=== PATIENT | male | born 1995 | race Caucasian/White ===

== ENCOUNTER 2017-08-06 04:10 | Emergency (ER) | payer BC, OTHER ==
[~2017-08-06] VITALS: Ht 172.7 cm; Wt 85.0 kg
[~2017-08-06 04:10] MED LIST: ALPR.25 PO
[2017-08-06] MEDS ORDERED: LORazepam 2 MG/ML VIAL IM ONE (04:30)
[2017-08-06] MEDS ORDERED: HALOPERIDOL LACTATE 5 MG/ML AMP IM ONE (04:30)
[2017-08-06 04:40] VITALS: BP 132/71; PULSE 99; RESP 18; TEMP 98.6; O2SAT 98
[2017-08-06 06:22] LABS: AUTOMATED NEUTROPHIL # 7.5 TH/MM3 (1.8-7.7); BASOPHIL % 0.4 % (0.0-2.0); EOSINOPHIL # 0.2 TH/MM3 (0-0.4); EOSINOPHIL % 1.8 % (0.0-4.0); HEMOGLOBIN 15.4 GM/DL (13.0-17.0); LYMPH % 18.9 % (9.0-44.0); MEAN CELL VOLUME 91.9 FL (80.0-100.0); MEAN CORPUSCULAR HEMOGLOBIN 31.5 PG (27.0-34.0); MEAN CORPUSCULAR HGB CONC 34.3 % (32.0-36.0); MEAN PLATELET VOLUME 7.8 FL (7.0-11.0); MONO % 7.2 % (0.0-8.0); MONOCYTE # 0.8 TH/MM3 (0-0.9); NEUT % 71.7 % (16.0-70.0); PLATELET COUNT 301 TH/MM3 (150-450); RED BLOOD COUNT 4.89 MIL/MM3 (4.50-5.90); RED CELL DISTRIBUTION WIDTH 13.2 % (11.6-17.2); WHITE BLOOD COUNT 10.5 TH/MM3 (4.0-11.0)
[2017-08-06] MEDS ORDERED: LORA1TAB12 PO (06:51)
[2017-08-06] MEDS ORDERED: AMPH1TAB29 PO (06:51)
[2017-08-06 06:53] LABS: ALKALINE PHOSPHATASE 118 U/L (45-117); ALT (GPT) 35 U/L (9-52); AST (GOT) 15 U/L (15-39); BICARBONATE 26.1 MEQ/L (21.0-32.0); BLOOD UREA NITROGEN 9 MG/DL (7-18); CALCIUM 8.2 MG/DL (8.5-10.1); CHLORIDE 107 MEQ/L (98-107); CREATININE 0.97 MG/DL (0.60-1.30); GLOMERULAR FILTRATION RATE 99 ML/MIN (>89); GLUCOSE,RANDOM 88 MG/DL (74-106); SODIUM (NA) 141 MEQ/L (136-145); TOTAL BILIRUBIN ADULT 0.2 MG/DL (0.2-1.0); TOTAL PROTEIN 7.8 GM/DL (6.4-8.2)
[2017-08-06 06:58] LABS: ACETAMINOPHEN LESS THAN 2.0 MCG/ML (10.0-30.0)
--- NOTE | 2017-08-06 07:14 | PD ---
HPI Chief Complaint: Psychiatric Symptoms Time Seen by Provider: 04:15 Travel History International Travel<30 days: No Contact w/Intl Traveler<30days: No Traveled to known affect area: No History of Present Illness HPI 22-year-old white male presents to emergency department under Ortiz act by PD. He said responded to home and found intoxicated individual arguing with his parents. According to the patient they Ortiz acted him because he was intoxicated and had a history of anxiety. Patient denies any suicidal or homicidal ideation. Ortiz act indicates the patient and made suicidal statements. Patient denies any toxic ingestions. Patient denies any recent illnesses or injuries. Patient denies any drugs. 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 Space doses at least 4 to 6 hours if more than once/day dosing. Lorazepam 1 Mg Tab Unknown Dose PO DAILY PRN Review of Systems General / Constitutional: No: Fever Eyes: No: Visual changes HENT: No: Headaches Cardiovascular: No: Chest Pain or Discomfort Respiratory: No: Shortness of Breath Gastrointestinal: No: Abdominal Pain Genitourinary: No: Dysuria Musculoskeletal: No: Pain Skin: No Rash Neurologic: No: Weakness Psychiatric: Positive: Anxiety, Mood Disorder, Substance Abuse, No: Depression , Suicidal Ideations, Disorder of Thought, Homicidal Ideation Endocrine: No: Polydipsia Hematologic/Lymphatic: No: Easy Bruising Physical Exam Narrative GENERAL: Well-nourished, well-developed patient. Patient is ataxic smells of EtOH. He appears intoxicated. Patient is uncooperative and is a barrier to his care. SKIN: Warm and dry. HEAD: Normocephalic and atraumatic. EYES: No scleral icterus. No injection or drainage. ENT: No nasal drainage noted. Mucous membranes pink. Airway patent. NECK: Supple, trachea midline. Moves head freely without obvious discomfort. CARDIOVASCULAR: Regular rate and rhythm without murmurs, gallops, or rubs. RESPIRATORY: Breath sounds equal bilaterally. No accessory muscle use. GASTROINTESTINAL: Abdomen soft, non-tender, nondistended. EXTREMITIES: No cyanosis or edema. BACK: Nontender without obvious deformity. No CVA tenderness. NEURO: Patient is alert and oriented. no sensorimotor deficits. Nonfocal. Slurred speech. PSYCH: No delusions. No auditory or visual hallucinations. Data Data Last Documented VS Vital Signs Date Time Temp Pulse Resp B/P (MAP) Pulse Ox O2 Delivery O2 Flow Rate FiO2 08/06/17 04:40 98.6 99 18 132/71 (91) 98 Orders Orders Complete Blood Count With Diff (08/06/17 04:16) Comprehensive Metabolic Panel (08/06/17 04:16) Psych Screen (08/06/17 04:16) Restraints Non-Violent SANG.Q3H (08/06/17 04:16) Drug Screen, Random Urine (08/06/17 04:16) Alcohol (Ethanol) (08/06/17 04:16) Salicylates (Aspirin) (08/06/17 04:16) Tylenol (Acetaminophen) (08/06/17 04:16) Haloperidol Inj (Haldol Inj) (08/06/17 04:30) Lorazepam Inj (Ativan Inj) (08/06/17 04:30) Labs Laboratory Tests Test 08/06/17 04:20 White Blood Count 10.5 TH/MM3 Red Blood Count 4.89 MIL/MM3 Hemoglobin 15.4 GM/DL Hematocrit 45.0 % Mean Corpuscular Volume 91.9 FL Mean Corpuscular Hemoglobin 31.5 PG Mean Corpuscular Hemoglobin Concent 34.3 % Red Cell Distribution Width 13.2 % Platelet Count 301 TH/MM3 Mean Platelet Volume 7.8 FL Neutrophils (%) (Auto) 71.7 % Lymphocytes (%) (Auto) 18.9 % Monocytes (%) (Auto) 7.2 % Eosinophils (%) (Auto) 1.8 % Basophils (%) (Auto) 0.4 % Neutrophils # (Auto) 7.5 TH/MM3 Lymphocytes # (Auto) 2.0 TH/MM3 Monocytes # (Auto) 0.8 TH/MM3 Eosinophils # (Auto) 0.2 TH/MM3 Basophils # (Auto) 0.0 TH/MM3 CBC Comment DIFF FINAL Differential Comment Blood Urea Nitrogen 9 MG/DL Creatinine 0.97 MG/DL Random Glucose 88 MG/DL Total Protein 7.8 GM/DL Albumin 4.0 GM/DL Calcium Level 8.2 MG/DL Alkaline Phosphatase 118 U/L Aspartate Amino Transf (AST/SGOT) 15 U/L Alanine Aminotransferase (ALT/SGPT) 35 U/L Total Bilirubin 0.2 MG/DL Sodium Level 141 MEQ/L Potassium Level 4.0 MEQ/L Chloride Level 107 MEQ/L Carbon Dioxide Level 26.1 MEQ/L Anion Gap 8 MEQ/L Estimat Glomerular Filtration Rate 99 ML/MIN Salicylates Level 4.1 MG/DL Acetaminophen Level LESS THAN 2.0 MCG/ML Ethyl Alcohol Level 238 MG/DL MDM Medical Decision Making Medical Screen Exam Complete: Yes Emergency Medical Condition: Yes Medical Record Reviewed: Yes Interpretation(s) Laboratory Tests Test 08/06/17 04:20 White Blood Count 10.5 TH/MM3 Red Blood Count 4.89 MIL/MM3 Hemoglobin 15.4 GM/DL Hematocrit 45.0 % Mean Corpuscular Volume 91.9 FL Mean Corpuscular Hemoglobin 31.5 PG Mean Corpuscular Hemoglobin Concent 34.3 % Red Cell Distribution Width 13.2 % Platelet Count 301 TH/MM3 Mean Platelet Volume 7.8 FL Neutrophils (%) (Auto) 71.7 % Lymphocytes (%) (Auto) 18.9 % Monocytes (%) (Auto) 7.2 % Eosinophils (%) (Auto) 1.8 % Basophils (%) (Auto) 0.4 % Neutrophils # (Auto) 7.5 TH/MM3 Lymphocytes # (Auto) 2.0 TH/MM3 Monocytes # (Auto) 0.8 TH/MM3 Eosinophils # (Auto) 0.2 TH/MM3 Basophils # (Auto) 0.0 TH/MM3 CBC Comment DIFF FINAL Differential Comment Blood Urea Nitrogen 9 MG/DL Creatinine 0.97 MG/DL Random Glucose 88 MG/DL Total Protein 7.8 GM/DL Albumin 4.0 GM/DL Calcium Level 8.2 MG/DL Alkaline Phosphatase 118 U/L Aspartate Amino Transf (AST/SGOT) 15 U/L Alanine Aminotransferase (ALT/SGPT) 35 U/L Total Bilirubin 0.2 MG/DL Sodium Level 141 MEQ/L Potassium Level 4.0 MEQ/L Chloride Level 107 MEQ/L Carbon Dioxide Level 26.1 MEQ/L Anion Gap 8 MEQ/L Estimat Glomerular Filtration Rate 99 ML/MIN Salicylates Level 4.1 MG/DL Acetaminophen Level LESS THAN 2.0 MCG/ML Ethyl Alcohol Level 238 MG/DL Differential Diagnosis MDM: High Differential diagnoses: Schizophrenia, schizoaffective disorder, bipolar, anxiety, depression, adjustment reaction, mood disorder NOS, ODD, depressive disorder NOS, dementia, dementia with agitation, psychosis NOS, substance induced mood disorder, DMDD, Asperger syndrome, infection,electrolyte abnormality, malingering. Narrative Course Mental health screening discussed with the patient. Psychiatric screen ordered. The patient is a fall risk. He is intoxicated. He is resisting evaluation and impeding his evaluation today. Nonviolent restraint is ordered. The patient is treated with Haldol 5 mg and Ativan 1 mg IM. The patient has been medically cleared. This is medical clearance for psychiatric admission, alcohol intoxication Diagnosis Primary Impression: Medical clearance for psychiatric admission Additional Impression: alcohol intoxication Condition: Stable Gabino Patel Aug 06, 2017 07:14
--- NOTE | 2017-08-06 09:52 | PD ---
Physical Exam Time Seen by Provider: 09:[address] Diego has evaluated the patient, lifted the Ortiz act and cleared the patient for discharge. Data Data Last Documented VS Vital Signs Date Time Temp Pulse Resp B/P (MAP) Pulse Ox O2 Delivery O2 Flow Rate FiO2 08/06/17 04:40 98.6 99 18 132/71 (91) 98 Orders Orders Complete Blood Count With Diff (08/06/17 04:16) Comprehensive Metabolic Panel (08/06/17 04:16) Psych Screen (08/06/17 04:16) Restraints Non-Violent SANG.Q3H (08/06/17 04:16) Drug Screen, Random Urine (08/06/17 04:16) Alcohol (Ethanol) (08/06/17 04:16) Salicylates (Aspirin) (08/06/17 04:16) Tylenol (Acetaminophen) (08/06/17 04:16) Haloperidol Inj (Haldol Inj) (08/06/17 04:30) Lorazepam Inj (Ativan Inj) (08/06/17 04:30) Diet Regular Basic (08/06/17 Breakfast) ^ Other Nursing Orders (08/06/17 09:34) Labs Laboratory Tests Test 08/06/17 04:20 White Blood Count 10.5 TH/MM3 Red Blood Count 4.89 MIL/MM3 Hemoglobin 15.4 GM/DL Hematocrit 45.0 % Mean Corpuscular Volume 91.9 FL Mean Corpuscular Hemoglobin 31.5 PG Mean Corpuscular Hemoglobin Concent 34.3 % Red Cell Distribution Width 13.2 % Platelet Count 301 TH/MM3 Mean Platelet Volume 7.8 FL Neutrophils (%) (Auto) 71.7 % Lymphocytes (%) (Auto) 18.9 % Monocytes (%) (Auto) 7.2 % Eosinophils (%) (Auto) 1.8 % Basophils (%) (Auto) 0.4 % Neutrophils # (Auto) 7.5 TH/MM3 Lymphocytes # (Auto) 2.0 TH/MM3 Monocytes # (Auto) 0.8 TH/MM3 Eosinophils # (Auto) 0.2 TH/MM3 Basophils # (Auto) 0.0 TH/MM3 CBC Comment DIFF FINAL Differential Comment Blood Urea Nitrogen 9 MG/DL Creatinine 0.97 MG/DL Random Glucose 88 MG/DL Total Protein 7.8 GM/DL Albumin 4.0 GM/DL Calcium Level 8.2 MG/DL Alkaline Phosphatase 118 U/L Aspartate Amino Transf (AST/SGOT) 15 U/L Alanine Aminotransferase (ALT/SGPT) 35 U/L Total Bilirubin 0.2 MG/DL Sodium Level 141 MEQ/L Potassium Level 4.0 MEQ/L Chloride Level 107 MEQ/L Carbon Dioxide Level 26.1 MEQ/L Anion Gap 8 MEQ/L Estimat Glomerular Filtration Rate 99 ML/MIN Salicylates Level 4.1 MG/DL Acetaminophen Level LESS THAN 2.0 MCG/ML Ethyl Alcohol Level 238 MG/DL MDM Supervised Visit with BALWINDER: No Narrative Course Dr. Diego has evaluated the patient, lifted the Ortiz act and cleared the patient for discharge. Patient contracts safety. Denies suicidal or homicidal ideations. Patient will be provided community resource packet to [facility] for follow-up. Has friends and family for support. Patient was medically cleared by alternate provider prior to psych screening. Patient has been evaluated by psychiatry and and is now cleared for discharge. Diagnosis Primary Impression: alcohol intoxication Referrals: Primary Care Physician Psychiatrist Patient Instructions: Abuse of Alcohol (ED), Alcohol Dependence (ED), Alcohol Intoxication (ED), General Instructions Additional Instruction: Contract safety to your self and others Stop drinking alcohol Follow-up with psychiatry Follow-up with primary care provider Follow-up with sAif Montez Return to the emergency department immediately with worsening of symptoms Med/Other Pt SpecificInfo: No Change to Meds, No Meds Exist/No RX given Disposition: 01 DISCHARGE HOME Condition: Stable Tami Landin Aug 06, 2017 09:52
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
== END 2017-08-06 11:21 | disposition home or self-care (01) ==
LOC: NEPD 04:10
DX: F10.129 Alcohol abuse with intoxication, unspecified (principal); F41.9 Anxiety disorder, unspecified; F90.9 Attention-deficit hyperactivity disorder, unspecified type; F32.9 Major depressive disorder, single episode, unspecified; Z79.899 Other long term (current) drug therapy; Z88.0 Allergy status to penicillin
CPT/HCPCS: 80053; 80307; 85025; 96372; 99284; J1630; J2060